=== PATIENT | male | born 1965 | race Caucasian/White ===

== ENCOUNTER 2021-08-23 05:59 | Day surgery (SDC) | payer OTHER ==
[~2021-08-23 05:59] MED LIST: ALLEGRA PO
== END 2021-08-23 13:50 | disposition home or self-care (01) ==
LOC: CIR.AMB 05:59
PROVIDERS: ATTEND Specialist
DX: L72.0 Epidermal cyst (principal); Z20.822 Contact with and (suspected) exposure to COVID-19